=== PATIENT | female | born 1975 | race Caucasian/White ===

== ENCOUNTER 2023-02-05 10:16 | Emergency (ER) | payer OTHER, SELFPAY ==
--- NOTE | ~2023-02-05 | XR_ITS ---
EXAMINATION: XR shoulder LT min 2V DATE: 02/05/2023 14:03 INDICATION: Lateral proximal left humeral pain. TECHNIQUE: 4 views of left shoulder were obtained. COMPARISON: None. FINDINGS: Bone alignment is normal. No fracture. Joint spaces are normal. There is calcific tendiniti s of the rotator cuff. IMPRESSION: 1. Calcific tendinitis of left rotator cuff. Reviewed, dictated and finalized at location A. IFIED NURSES AIDE
--- NOTE | ~2023-02-05 | XR_ITS ---
XR humerus LT DATE: 02/05/2023 11:01 INDICATION: Pain at midshaft of humerus after cleaning spree on 02/02/2023 TECHNIQUE: AP and lateral views COMPARISON: None FINDINGS: Some chronic calcifications are noted along the superior lateral aspect of the left humeral head. Normal alignment at the acromioclavicular, glenohumeral and elbow joints. No recent fracture or dislocation, periosteal reaction or bone destruction is detected. Mild degenera tive spurring of the coronoid process of the proximal ulna. IMPRESSION: No fracture or dislocation or bone destruction Reviewed, dictated and finalized at location L. E INSPECTOR
[2023-02-05 10:30] VITALS: BP 167/83; PULSE 82; RESP 18; TEMP 36.7; O2SAT 97
--- NOTE | 2023-02-05 13:40 | ED.GENADULT ---
HPI - General Adult General Chief complaint: Extremity Injury, Upper Stated complaint: left arm pain Time Seen by Provider: 02/05/23 12:57 Source: patient Limitations: no limitations History of Present Illness HPI narrative: Patient is a 47-year-old female presents complaining of left arm pain. Patient states the pain has been since Saturday. Patient describes the pain as a pain in her mid and upper left arm, denies any history of this pain in the past, denies any obvious injury. Patient states that the pain is worse when she tries to abduct her left shoulder. Patient denies any history of injuries to this region the past. Patient denies any numbness or weakness. Patient states that preceding the change she was doing a lot of house work cleaning up and mopping and sweeping. Patient admits to taking Tylenol Motrin [id number] which do help with the pain however having taken completely away. Patient is right-handed. Patient chest pain, shortness of breath, paresthesias, fevers. Related Data Home Medications Medication Instructions Recorded Confirmed cyanocobalamin (vitamin B-12) 50 50 mcg PO DAILY 09/12/21 05/14/22 mcg tablet (Vitamin B-12) ergocalciferol (vitamin D2) 1,250 1,250 mcg PO WEEKLY 09/12/21 05/14/22 mcg (50,000 unit) capsule ferrous sulfate 325 mg (65 mg 325 mg PO DAILY 09/12/21 05/14/22 iron) tablet (FeroSul) omeprazole 40 mg capsule,delayed 40 mg PO DAILY 09/12/21 05/14/22 release Allergies Allergy/AdvReac Type Severity Reaction Status Date / Time No Known Allergies Allergy Verified 02/05/23 10:50 Review of Systems Review of Systems: A 10 system review of systems was completed on the patient and is negative except for what is stated in the HPI. Nursing and ancillary documentation was reviewed. 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 Alopecia Anxiety Frequent headaches GERD (gastroesophageal reflux disease) HGSIL (high grade squamous intraepithelial lesion) on Pap smear of cervix (09/13/21) HPV in female Screening mammogram, encounter for Surgical History Surgical History (Updated 05/14/22 @ 14:49 by Colt Subramanian MD) H/O LEEP 07/21/20 benign H/O LEEP (02/02/22) Pathology benign History of colposcopy with cervical biopsy 03/30/19 benign History of dilation and curettage 01/15/14 Family History Family History Other Lung cancer paternal uncle Mother Carcinoma of cervix Social History Social History (Updated 09/12/21 @ 14:05 by Felicitas Sierra Nelida) Smoking status: Never smoker Alcohol intake: never Substance use: former Substance use type: marijuana Last use: 2009 Living arrangements: other Additional living arrangements comments: Occupation/Education: occupation 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 Please see the nursing chart for further information. There is no relevant family history pertinent to the presenting complaint. Exam Narrative: CONST: No acute distress. Well nourished. HENMT: Head is normocephalic and atraumatic. Moist mucous membranes. No posterior oropharynx erythema. EYES: No conjunctival icterus, injection, or pallor. PERRL. NECK: No meningeal signs. RESP: Able to speak in full sentences. Normal respiratory effort. CTAB. CARDIO: Regular rate. Regular rhythm. 2+ DP and radial pulses bilaterally. GI: Nondistended. No tenderness to palpation. Soft. : No CVA tenderness to palpation. SKIN: No rashes or l
[2023-02-05] MEDS: HYDROcodone/acetaminophen (*CRX) 5-325 MG TABLET 1 TAB PO (13:52)
== END 2023-02-05 14:57 | disposition home or self-care (01) ==
PROVIDERS: Emergency Provider Student in an Organized Health Care Education/Training Program; PCP Nurse Practitioner Family
DX: S46.002A Unspecified injury of muscle(s) and tendon(s) of the rotator cuff of left shoulder, initial encounter (principal); X58.XXXA Exposure to other specified factors, initial encounter
CPT/HCPCS: 73030; 73060; 99283; A4565; A9270

== ENCOUNTER 2023-05-15 13:01 | Outpatient (CLI) | payer OTHER, SELFPAY ==
--- NOTE | ~2023-05-15 | US_ITS ---
EXAMINATION: US pelvic complete w TV DATE: 05/15/2023 13:41 INDICATION: Pelvic and perineal pain. TECHNIQUE: Multiple transabdominal and transvaginal sonographic images of the pelvis were obtained. COMPARISON: None. FINDINGS: TRANSABDOMINAL ULTRASOUND: The uterus measures 12.5 x 7.5 x 7.8 cm. There is no free fluid in the pelvis. TRANSVAGINAL ULTRASOUND: The endometrial complex measures 8 mm in thickness. There is a 3.0 cm intramural fibroid. There is a 2.2 cm subserosal fibroid. The right ovary measures 7.5 x 5.9 x 7.5 cm. There is a 5.2 cm cyst with l ow-level echoes and single septation in right ovary. There is normal vascular flow in right ovary. Th e left ovary is not visualized. IMPRESSION: 1. 5.2 cm cystic mass in right ovary, most likely a hemorrhagic cyst. Pelvis ultrasound is recommende d in 6-12 weeks. 2. Uterine fibroids. 3. Left ovary not visualized. Reviewed, dictated and finalized at location E. CTOR VOICE IMPRESSION: 1. 5.2 cm cystic mass in right ovary, most likely a hemorrhagic cyst. Pelvis ul trasound is recommended in 6-12 weeks. 2. Uterine fibroids. 3. Left ovary not visualized.
== END 2023-05-15 13:02 ==
LOC: MICIMG 13:02
PROVIDERS: PCP Obstetrics & Gynecology; Visit Provider Obstetrics & Gynecology
DX: N83.291 Other ovarian cyst, right side (principal); D25.1 Intramural leiomyoma of uterus; D25.2 Subserosal leiomyoma of uterus
CPT/HCPCS: 76830; 76856

== ENCOUNTER 2023-08-28 13:44 | Outpatient (CLI) | payer OTHER, SELFPAY ==
--- NOTE | ~2023-08-28 | MM_ITS ---
EXAMINATION: MM screening veda BI w hoang HISTORY: Screening TECHNIQUE: Craniocaudal and mediolateral oblique 3-D tomosynthesis images were obtained and synthetic 2-D images were generated. CAD analysis was submitted and interpreted. COMPARISON: No prior mammogram is available for comparison at this institution. BREAST PARENCHYMAL COMPOSITION: Not dense: There are scattered areas of fibroglandular density. FINDINGS: There is no evidence of suspicious mass, calcification, or architectural distortion to sugg est malignancy in either breast. There has been no suspicious interval change. IMPRESSION: 1. No mammographic evidence of malignancy. 2. Recommend routine screening mammography in one year. BI-RADS Category 1: Negative Reviewed, dictated and finalized at location B.
== END 2023-08-28 13:45 ==
LOC: MICIMG 13:45
PROVIDERS: PCP Obstetrics & Gynecology; Visit Provider Obstetrics & Gynecology
DX: Z12.31 Encounter for screening mammogram for malignant neoplasm of breast (principal)
CPT/HCPCS: 77063; 77067